=== PATIENT | male | born 1975 | race Caucasian/White ===

== ENCOUNTER 2019-03-25 14:24 | Emergency (ER) | payer BC ==
[~2019-03-25] VITALS: Ht 175.3 cm; Wt 83.0 kg
[2019-03-25] MEDS ORDERED: LAMICTAL100 MG PO (14:46)
[2019-03-25] MEDS ORDERED: LISINOPRIL20 MG PO (14:47)
[2019-03-25] MEDS ORDERED: TOPROL XL25 MG PO (14:47)
[2019-03-25] MEDS ORDERED: [UNRECOGNIZED DRUG - OTHER] (14:47)
[2019-03-25] MEDS ORDERED: NORCO 5-325 TA1 EAC1 PO (15:41)
[2019-03-25 15:51] VITALS: BP 111/72
== END 2019-03-25 15:52 | disposition home or self-care (01) ==
LOC: M.ERS 14:24
DX: L02.31 Cutaneous abscess of buttock (principal)